=== PATIENT | female | born 1945 | race Caucasian/White ===

== ENCOUNTER 2021-11-19 17:39 | Observation (INO) | payer OTHER ==
[~2021-11-19] VITALS: Ht 152.4 cm; Wt 76.2 kg
[2021-11-19 17:46] VITALS: BP_SYST 161
--- NOTE | 2021-11-19 17:52 | NUR ---
Patient to ER bed 03 to gown for evaluation. Side rails up.
[2021-11-19] MEDS ORDERED: MORPHINE 2 MG/ML INJ. SYRINGE IVP ONE ×2 (18:00→18:15)
[2021-11-19] MEDS ORDERED: ONDANSETRON HCL 4 MG/2 ML VIAL IVP ONE (18:00)
[2021-11-19] MEDS ORDERED: NS 500 ML IV ONE (18:00)
--- NOTE | 2021-11-19 18:00 | NUR ---
RECEIVED PT FROM RANDY OLEA. PT BIBS WITH C/O MECH FALL, PT FELL TO BACK, PT PRESENTS WITH SWELLING TO UPPER CHEST. PT IS AAOX4. RESP E/U. ON R/A. NORMAL S1S2 NOTED. DENIES N/V/D/C. SKIN CDI. DISTAL PULSES NORMAL. DENIES PAIN AT THIS TIME.
--- NOTE | 2021-11-19 18:30 | NUR ---
DR. ARREDONDO AT BEDSIDE TO ASSESS PT.
--- NOTE | 2021-11-19 18:38 | NUR ---
MORPHINE 4MG IVP GIVEN FOR CHEST PAIN 11/01. PT ON MONITOR. PT GIVEN COLD COMPRESS FOR UPPER CHEST PAIN.
--- NOTE | 2021-11-19 18:45 | NUR ---
#20gauge angiocath placed to RFA. Use of asceptic technique. Opsite placed over site. Blood return noted. Blood for lab drawn from site. Flushed with 10 cc of normal saline. No evidence of infiltration noted. Patient tolerated well.
[2021-11-19 18:46] LABS: BASOPHILS # (AUTO) 0.1 K/uL (0.0-0.2); BASOPHILS % (AUTO) 0.8 % (0.0-2.0); EOSINOPHILS # (AUTO) 0.1 K/uL (0.0-0.4); EOSINOPHILS % (AUTO) 0.8 % (0.0-4.0); HEMATOCRIT 40.5 % (36-48); LYMPHOCYTES # (AUTO) 0.9 K/uL (1.0-5.5); MEAN CORPUSCULAR VOLUME 100 fL (79.0-98.0); MONOCYTES # (AUTO) 0.4 K/uL (0.0-1.0); MONOCYTES % (AUTO) 6.4 % (1.7-9.3); NEUTROPHILS # (AUTO) 5.1 K/uL (1.8-7.7); PLATELET COUNT (AUTO) 156 K/uL (130-430); RED BLOOD CELL COUNT(AUTO) 4.06 MIL/uL (4.2-6.2); RED CELL DISTRIBUTION WIDTH 13.8 % (9.0-15.0); WHITE BLOOD COUNT (AUTO) 6.5 K/uL (4.8-10.8)
[2021-11-19 18:53] LABS: ANION GAP 7 (5-15); CALCIUM 9.2 mg/dL (8.4-11.0); CHLORIDE 103 mmol/L (98-107); CREATININE 0.72 mg/dL (0.55-1.30); GLUCOSE 106 mg/dL (70-99); POTASSIUM 3.7 mmol/L (3.5-5.1); UREA NITROGEN, BLOOD 11 mg/dL (8-21)
[2021-11-19] MEDS ORDERED: iohexoL 350 mgI/mL, 100 ML INFUS..BTL IV ONE (19:10)
[2021-11-19 19:11] LABS: ALANINE AMINOTRANSFERASE 18 U/L (12-78); ALBUMIN 3.7 g/dL (3.4-4.8); ASPARTATE AMINOTRANSFERASE 26 U/L (10-37); TOTAL BILIRUBIN 0.6 mg/dL (0.0-1.0)
--- NOTE | 2021-11-19 19:24 | NUR ---
ENDORSED ALL CARE TO RANDY PETERS. ALL QUESTIONS AND CONCERNS ADDRESSED
--- NOTE | 2021-11-19 20:34 | NUR ---
Admit bed requested Patient will be admitted to care of Dr. CHOWDHURY Admitted to MS/OBS unit. Diagnosis RT CLAVICLE FRACTURE Inpatient (Yes or No) NO Observation (Yes or No) YES Orientation concerns or request close to nursing station (Yes or No) NO Covid Status PENDING On vent or bipap NO Isolation requirements NO Needs a sitter NO From Home (Yes or if No enter name of facility) YES Requires Dialysis (Yes or No) NO Med Rec Completed (Yes of No) YES
--- NOTE | 2021-11-19 20:41 | NUR ---
COVID OBTAINED LABELED AND GIVEN TO LAB
[2021-11-19] MEDS ORDERED: ACETAMINOPHEN 325 MG TABLET PO PRN ×2 (20:45→21:00)
[2021-11-19] MEDS ORDERED: LEVO88CA4 PO (21:19)
[2021-11-19] MEDS ORDERED: GABA-533 PO (21:19)
--- NOTE | 2021-11-19 21:20 | NUR ---
Pt resting in bed with ice pack to right clavicle. Noted with bruising and hematoma to right clavicle. Pt states pain is better now s/p Morphine admin. Pending admit bed.
[2021-11-19] MEDS ORDERED: MORPHINE 4 MG INJ. 4 MG/ML VIAL IVP ONE (21:30)
--- NOTE | 2021-11-19 22:22 | NUR ---
Pt admitted to [facility] with VSS, transported by networking technician. Report given to Jazlyn PADILLA, all questions answered.
[2021-11-20] VITALS: BP_SYST 128
[2021-11-20] MEDS: MORPHINE 2 MG/ML INJ. SYRINGE IVP PRN ×2 (03:43→09:29)
--- NOTE | 2021-11-20 11:23 | NUR ---
CONSULTATION PAGED/CALLED Reason for Consultation: right clavicle fracture Person Who was Notified: blade Consulting Physician: binta sawyer Manager Architectural Specialty: ortho Ordering Physician: davy vogel
[2021-11-20 12:00] VITALS: BP_SYST 111
--- NOTE | 2021-11-20 14:10 | NUR ---
[employer] WE[employer]HER ACSW Angella responded to a request for Outbound Sales Advisor support from assigned RN Fransisco who shared patient and patient's family is requesting caregiving information. ACSW met with patient and patient's daughter in law Petrona at bedside. ACSW completed introductions, provided business card, and patient was open to contact. Patient and Petrona shared they have concerns with patient residing alone and needing assistance. They shared the family will take turns helping her out, but unavailable daily. They inquired into obtaining transfer to residential facility and obtaining a home health nurse. They shared patient struggles with getting into her shower and getting to the restroom quick enough and are requesting a bedside commode. ACSW acknowledged patient and family concerns. ACSW provided a brief explanation of physicians orders in relation to "skilled need" and insurance authorization and home health. ACSW also provided an update that there were no discharge plans at this time, and encouraged them to express the desire for a bedside commode to the physician. ACSW provided the following resources - [employer] Resource Booklet - [facility] informational packet - Home Care Resources Packet
[2021-11-20 16:00] VITALS: BP_SYST 122
[2021-11-20] MEDS ORDERED: HYDR-3917 PO (17:59)
--- NOTE | 2021-11-20 19:10 | NUR ---
0800: NO C/O ANY PAIN OR DISCOMFORT @ THIS TIME. RIGHT CLAVICLE SITE SWOLLEN AND TENDER TO TOUCH. 1130: PATIENT WAS SEEN BY DR. KRISTINA ARROYO MD. WILL CHECK X -RAY TO SEE IF PATIENT NEED SURGICAL INTERVENTION. PATIENT REQUEST PRN MED FOR PAIN. MORPHINE IV PUSH WAS ADMINISTERED REQUEST. WILL REASSESS PAIN LEVEL W/IN THE NEXT HOUR. SLING TO APPLY TO THE AFFECTED SIDE.- 1230: PATIENT UP TO SIDE OF THE BED COMFORTABLE, NO N/V TOLERATED PO WELL WITH FAIR APPETITE. 1600: CHECK WITH DR. ARROYO, NO SURGICAL INTERVENTION NEEDED. PATIENT OK TO DISCHARGE FROM [facility]. F0LLOW UP WITH MD. IN 2 WEEKS. BRAZER CONTROLLED ATMOSPHERIC FURNACE MADE AWARE PATENT OK TO DISCHARGE. PLAN TO DISCHARGE AM. TO FAMILY TO ASSIST BECAUSE PATIENT LEAVE ALONE. 1830: PATIENT STATED WANTING TO BE DISCHARGE TONIGHT TO DAUGHTER JESSENIA PLACE OF RESIDENT. GRAND DAUGHTER WILL STAY HOME TO ASSIST PATIENT. 1900: DISCHARGE INSTRUCTION DONE. PRESCRIPTION FOR [facility] ELECTRONICALLY SENT TO PATIENT PREF[facility] BY DR. Karyn CHOWDHURY. PATIENT AND DAUGHTER JESSENIA VERBALIZE UNDERSTANDING AND WILL COMPLY WITH INSTRUCTION GIVEN. PATIENT LEFT THE HOSPITAL VIA PERSONAL VEHICLE. IV HEPLOCK DC'D PRIOR TO DISCHARGE.
== END 2021-11-20 19:20 | disposition home or self-care (01) ==
LOC: SED 17:39 → SMU 20:31
PROVIDERS: ADMIT Internal Medicine; ATTEND Internal Medicine
DX: S12.9XXA Fracture of neck, unspecified, initial encounter (principal); Z20.822 Contact with and (suspected) exposure to COVID-19; E03.9 Hypothyroidism, unspecified; W19.XXXA Unspecified fall, initial encounter; Y93.89 Activity, other specified; Y92.89 Other specified places as the place of occurrence of the external cause; Z79.899 Other long term (current) drug therapy
CPT/HCPCS: 96374; 96375; 96376 ×2; 80053; 85025; 36415; 70450; 70498; 76376; 99285; 87426; 73000; Q9967; J2405; J2270 ×3; G0378 ×2